=== PATIENT | female | born 2000 | race Caucasian/White ===

== ENCOUNTER → 2020-09-15 | Outpatient (CLI) | payer OTHER ==
[~2020-09-15] MED LIST: ADAPALENE; FLUTICASONE PRO16 GM NASAL; KEFLEX500 M1 PO; LORYNA 3 MG-0.1 EACH PO; NORCO 10-325 T1 EACH PO; ZOFRAN ODT4 MG PO
== END ==
LOC: LAB 07:43
PROVIDERS: ATTEND Otolaryngology
DX: Z01.812 Encounter for preprocedural laboratory examination (principal); Z20.828 Contact with and (suspected) exposure to other viral communicable diseases

== ENCOUNTER 2020-09-20 06:31 | Day surgery (SDC) | payer OTHER ==
[~2020-09-20] VITALS: Ht 154.9 cm; Wt 45.4 kg
--- NOTE | ~2020-09-20 | O ---
[facility] [place] [address] OPERATIVE REPORT Name: MAU BA Room #: 150-4 [facility] M.R.#: [id number] Admission: 09/20/20 Attend Phys: Lenny Muñoz MD Discharge: Date of : 00 Report #: [id number] THIS REPORT FOR: cc: Delia Hdez MD, Veronica A. MD Shapiro,Lenny Pro MD ~ DATE OF SERVICE: 09/20/2020 PREOPERATIVE DIAGNOSIS: Chronic maxillary, ethmoid and frontal sinusitis. POSTOPERATIVE DIAGNOSIS: Chronic maxillary, ethmoid and frontal sinusitis. OPERATIVE PROCEDURES: Endoscopic bilateral maxillary antrostomies with removal of tissue, bilateral complete ethmoidectomies and bilateral frontal duct explorations. ANESTHESIA: General by laryngeal mask, also image guidance surgery. DESCRIPTION OF PROCEDURE: The patient was taken to the operating room and placed in a supine position. General anesthesia was induced by laryngeal mask. Once adequate general anesthesia was obtained, local nasal anesthesia was induced by submucoperiosteal injection of 1% lidocaine with 1:100,000 epinephrine and topical application of cocaine solution. The patient was then draped in a sterile manner. The patient was also calibrated to the fusion image guidance system for image guidance surgery throughout the procedure. The nasal endoscope was used to visualize the left nasal cavity and the middle turbinate was deviated medially. The uncinate process was removed using the microdebrider and the natural opening of the maxillary sinus was located. It was enlarged in a posterior inferior manner by removing the soft fontanelle. An ethmoidectomy was performed by removing the ethmoidal bulla and then following the ethmoid air cells back to and through the basal lamella and then forward along the lamina papyracea and fovea ethmoidalis to complete the ethmoidectomy anteriorly. I followed the ethmoid air cells anteriorly up into the frontal duct and into the frontal sinus and make sure there was a nice opening into the frontal sinus as well. Surgiflo was placed into the ethmoid cavity and middle meatus for hemostasis. The exact same procedure was performed on the left side. The patient tolerated the procedure well. Blood loss was approximately 20 mL. The patient was then awoken and taken to recovery room in stable condition for postoperative monitoring. By: [id number] Lenny Muñoz MD /jennifer
[~2020-09-20 06:31] MED LIST changes: -KEFLEX500 M1 PO; -NORCO 10-325 T1 EACH PO; -ZOFRAN ODT4 MG PO
[2020-09-20 07:40] VITALS: BP 119/74
--- NOTE | 2020-09-20 08:42 | H ---
[facility] [place] [address] HISTORY AND PHYSICAL Name: MAU BA Room #: 150-4 [facility] M.R.#: [id number] Admission: 09/20/20 Attend Phys: Lenny Muñoz MD Discharge: Date of : 00 Report #: [id number] THIS REPORT FOR: cc: Delia Hdez MD, Veronica A. MD Shapiro,Lenny Pro MD ~ PREOPERATIVE HISTORY AND PHYSICAL Her procedure is scheduled for the 09/20. HISTORY OF PRESENT ILLNESS: The patient has had a lot of problems with allergies and sinuses and I have been following her for at least 4 years for intermittent hoarseness secondary to postnasal drainage. We thought that she had problems with allergies and she would get intermittent sinus infections as well. She has been treated on numerous occasions for sinusitis and allergic rhinitis with steroids and antibiotics. She had a workup for migraine headaches and an MRI showed mucous membrane thickening in the maxillary and ethmoid sinuses. She was treated with steroids and antibiotics and we had a followup CT scan, which shows complete opacification of the left maxillary sinus with fluid and mucous membrane thickening and bilateral ethmoid sinuses as well as the frontal sinuses. She had fluid and air bubbles in the sphenoid sinuses. She has a fairly midline nasal septum. PAST MEDICAL HISTORY: Otherwise, not significant. MEDICATIONS: She takes no medications on a regular basis. ALLERGIES: She has no known drug allergies. PHYSICAL EXAMINATION: She had swelling and congestion with allergic drainage in the nose. Her oropharynx and oral cavity were clear. She had no adenopathy or masses in her neck. IMPRESSION: Chronic maxillary, ethmoid, frontal and sphenoid sinusitis with allergic rhinitis causing problems with hoarseness and headaches. PLAN: Endoscopic bilateral maxillary antrostomies, complete ethmoidectomies, frontal duct explorations and sphenoidotomies. <ELECTRONICALLY SIGNED> By: Lenny Muñoz MD 09/20/20 [id number] Lenny Muñoz MD /nt
[2020-09-20] MEDS ORDERED: NORCO 10-325 T1 EACH PO (08:46)
[2020-09-20] MEDS ORDERED: KEFLEX500 M1 PO (08:46)
[2020-09-20] MEDS ORDERED: ZOFRAN ODT4 MG PO (08:46)
[2020-09-20 09:18] VITALS: BP 119/74
== END 2020-09-20 10:10 | disposition home or self-care (01) ==
LOC: OR → TBA 06:31 → OR 08:53
PROVIDERS: ATTEND Otolaryngology
DX: J32.0 Chronic maxillary sinusitis (principal); J32.2 Chronic ethmoidal sinusitis; J32.1 Chronic frontal sinusitis; F32.9 Major depressive disorder, single episode, unspecified; F41.9 Anxiety disorder, unspecified; Z98.890 Other specified postprocedural states; Z79.899 Other long term (current) drug therapy
CPT/HCPCS: 50010; 50101; 50286; 50386; 50398; 50573; 51751; 52290; 52291; 62110; 62900; 70005